=== PATIENT | female | born 1995 | race Caucasian/White ===

== ENCOUNTER 2017-12-17 08:01 | Outpatient (CLI) | payer BC ==
--- NOTE | 2017-12-17 18:18 | XRAY Report ---
THREE VIEW LUMBAR SPINE: 12/17/2017 HISTORY: Left hip pain. COMPARISON: None. FINDINGS: Slight mid lumbar dextroscoliosis with rotatory component. No anterolisthesis or retrolisthesis. Mild L4-5 and L5-S1 disk space narrowing. Remaining disk spaces well maintained. No significant facet joint arthropathy. Sacroiliac joints grossly unremarkable. IMPRESSION: EARLY DEGENERATIVE CHANGE L4-5 AND L5-S1 DISKS. OTHERWISE, NEGATIVE. TD: 12/17/2017 16:10
--- NOTE | 2017-12-17 18:20 | XRAY Report ---
PELVIS AND BILATERAL HIPS: 12/17/2017 HISTORY: Left hip pain. FINDINGS: AP view of the pelvis and lateral view of each hip. There is very slight lateral hip joint space narrowing, left greater than right. No evidence of fracture, avascular necrosis, bone destruction, malalignment, or other abnormality. Sacroiliac joints appear normal. IMPRESSION: MINOR LEFT GREATER THAN RIGHT LATERAL HIP JOINT NARROWING. OTHERWISE, NEGATIVE. IF SYMPTOMS PERSIST, MRI MAY BE USEFUL. TD: 12/17/2017 16:10
== END 2017-12-17 08:02 | disposition home or self-care (01) ==
LOC: DI 08:01
PROVIDERS: ATTEND Physician Assistant
DX: M25.552 Pain in left hip (principal)
CPT/HCPCS: 72100; 73521

== ENCOUNTER 2017-12-18 08:00 | Outpatient (CLI) | payer BC ==
[2017-12-18 13:06] LABS: ALBUMIN 3.9 g/dL (3.2-5.5); ALBUMIN/GLOBULIN RATIO 1.3 (1.0-2.2); BILIRUBIN,TOTAL 0.8 mg/dL (0.2-1.0); CREATININE 0.5 mg/dL (0.4-1.0)
[2017-12-18 13:17] LABS: BASOPHILS # (AUTO) 0.1 10^3/uL (0.0-0.1); BASOPHILS % (AUTO) 0.8 %; EOSINOPHILS # (AUTO) 0.2 10^3/uL (0.0-0.7); EOSINOPHILS % (AUTO) 3.1 %; HGB - HEMOGLOBIN 14.1 g/dL (12.0-16.0); LYMPHOCYTES # (AUTO) 2.6 10^3/uL (1.5-3.5); LYMPHOCYTES % (AUTO) 38.5 %; MEAN CORPUSCULAR HEMOGLOBIN 28.9 pg (27.0-31.0); MEAN CORPUSCULAR HGB CONC 33.3 g/dL (32.0-36.0); MEAN CORPUSCULAR VOLUME 86.6 fL (81.0-99.0); MEAN PLATELET VOLUME 10.7 fL (7.9-10.8); MONOCYTES # (AUTO) 0.5 10^3/uL (0.0-1.0); NEUTROPHILS # (AUTO) 3.3 10^3/uL (1.5-6.6); NEUTROPHILS % (AUTO) 49.6 %; PLT - PLATELET COUNT 232 10^3/uL (130-450); RED BLOOD COUNT 4.88 10^6/uL (4.20-5.40); RED CELL DISTRIBUTION WIDTH 13.8 % (12.0-15.0); WHITE BLOOD COUNT 6.7 x10^3/uL (4.8-10.8)
[2017-12-18 19:51] LABS: HB2 TOTAL 15.6 g/dL; HEMOGLOBIN A1C 0.53 g/dL; HEMOGLOBIN A1C % 5.3 % (4.6-6.2)
[2017-12-20 15:21] LABS: ANA SCREEN NEGATIVE (NEGATIVE)
== END 2017-12-18 08:01 | disposition home or self-care (01) ==
LOC: LAB.WCP 08:00
PROVIDERS: ATTEND Physician Assistant
DX: Z00.00 Encounter for general adult medical examination without abnormal findings (principal); L56.2 Photocontact dermatitis [berloque dermatitis]
CPT/HCPCS: 36415; 80053; 83036; 84443; 85025; 86038

== ENCOUNTER 2017-12-25 12:44 | Outpatient (CLI) | payer BC | END 2017-12-25 12:45 | disposition home or self-care (01) | LOC: DI 12:44 | PROVIDERS: ATTEND Physician Assistant | DX: Q79.6 Ehlers-Danlos syndromes (principal) | CPT/HCPCS: 93306 ==

== ENCOUNTER 2019-03-25 12:49 | Outpatient (CLI) | payer BC ==
--- NOTE | 2019-03-25 22:39 | Ultrasound Report ---
Reason: NAUSEA Procedure Date: 03/25/2019 Accession Number: [id number] / [id number] Procedure: US - Abdomen Complete CPT Code: FULL RESULT: EXAM: ABDOMEN ULTRASOUND EXAM DATE: 03/25/2019 01:40 PM. CLINICAL HISTORY: NAUSEA. COMPARISON: None. TECHNIQUE: Real-time scanning was performed with static images obtained. FINDINGS: Liver: Diffusely echogenic. 17.4 cm. Main portal vein flow: Hepatopetal. Gallbladder: A couple of gallstones measuring 6 mm and 9 mm. No abnormal wall thickening or sonographic Tidwell sign. Biliary System: Common bile duct measures 5 mm. No intrahepatic ductal dilatation. Pancreas: Head and body are unremarkable. Tail is obscured by overlying bowel gas. Kidneys: Right: 12.0 cm longitudinally. No contour-deforming mass, shadowing stones, or hydronephrosis. Left: 10.3 cm longitudinally. No contour-deforming mass, shadowing stones, or hydronephrosis. Spleen: 11.2 cm Imaged portions of the aorta and IVC are unremarkable. IMPRESSION: Diffuse hepatic steatosis. Cholelithiasis. RADIA
== END 2019-03-25 12:50 | disposition home or self-care (01) ==
LOC: DI 12:49
PROVIDERS: ATTEND Physician Assistant
DX: K76.0 Fatty (change of) liver, not elsewhere classified (principal); K80.20 Calculus of gallbladder without cholecystitis without obstruction
CPT/HCPCS: 76700

== ENCOUNTER 2020-01-16 10:49 | Outpatient (CLI) | payer OTHER | END 2020-01-16 10:50 | disposition home or self-care (01) | LOC: LAB 10:49 | PROVIDERS: ATTEND Surgery | DX: Z01.812 Encounter for preprocedural laboratory examination (principal); K80.20 Calculus of gallbladder without cholecystitis without obstruction; Z20.828 Contact with and (suspected) exposure to other viral communicable diseases | CPT/HCPCS: 81599 ==

== ENCOUNTER 2020-01-20 10:17 | Day surgery (SDC) | payer OTHER ==
[2020-01-20] MEDS ORDERED: ONDANSETRON 4 MG/2 ML VIAL IVP ONE (10:18)
[2020-01-20] MEDS ORDERED: NEOSTIGMINE 1 MG/1 ML 10 ML MDV IVP ONE (10:18)
[2020-01-20] MEDS ORDERED: PROPOFOL 200 MG/20 ML VIAL IVP ONE (10:18)
[2020-01-20] MEDS ORDERED: DEXAMETHASONE 4 MG/ML VIAL IVP ONE (10:18)
[2020-01-20] MEDS ORDERED: KETOROLAC 30 MG/ML VIAL IVP ONE (10:18)
[2020-01-20] MEDS ORDERED: GLYCOPYRROLATE 1 MG/5 ML VIAL IVP ONE (10:18)
[2020-01-20] MEDS ORDERED: fentaNYL 250 MCG/5 ML VIAL IVP ONE (10:18)
[2020-01-20] MEDS ORDERED: ROCURONIUM 50 MG/5 ML VIAL IVP ONE (10:18)
[2020-01-20] MEDS ORDERED: MIDAZOLAM 2 MG/2 ML VIAL IVP ONE (10:18)
[2020-01-20] MEDS ORDERED: ePHEDrine 50 MG/ML VIAL IVP ONE (10:18)
[2020-01-20] MEDS ORDERED: CEFAZOLIN SODIUM IN 0.9 % NACL 2 GM/100 ML BAG IV ONE (10:33)
[2020-01-20 10:38] LABS: HCG UR QUAL NEGATIVE
[2020-01-20] MEDS ORDERED: LACTATED RINGERS 1,000 ML IV ONE ×2 (10:47→15:56)
--- NOTE | 2020-01-20 12:54 | ANESTHESIA ---
Pre-Anesthesia VS, & Labs - Diagnosis chronic cholecystitis - Procedure laparoscopic cholecystectomy Vital Signs: Temp Pulse Resp BP Pulse Ox 36.2 C L 89 16 131/74 H 89 L 01/20/20 10:40 01/20/20 10:40 01/20/20 10:40 01/20/20 10:40 01/20/20 10:40 Height 5 ft 8 in Weight (kg) 131.2 kg - NPO >8 hours - Is Patient ?: No Home Medications and Allergies Home Medications: Ambulatory Orders Acetaminophen 1,000 mg PO Q6HR PRN 01/13/20 Cyclobenzaprine HCl 5 mg PO TID PRN 01/13/20 Ibuprofen [Motrin] 600 mg PO Q6H PRN 01/13/20 Levalbuterol [Xopenex] 1 - 2 puffs INH Q4-6H 01/13/20 Acetaminophen 1,000 mg PO Q6HR PRN 01/13/20 Cyclobenzaprine HCl 5 mg PO TID PRN 01/13/20 Ibuprofen [Motrin] 600 mg PO Q6H PRN 01/13/20 Levalbuterol [Xopenex] 1 - 2 puffs INH Q4-6H 01/13/20 Allergies/Adverse Reactions: Allergies Allergy/AdvReac Type Severity Reaction Status Date / Time almond Allergy tingling Verified 01/13/20 15:26 mouth coconut oil Allergy Hives Verified 01/13/20 15:26 dust Allergy sneezing, Uncoded 01/13/20 15:26 watery eyes sun Allergy Rash Uncoded 01/13/20 15:26 Anes History & Medical History - Anesthetic History Anesthesia Complications: reports: No previous complications Family history of Anesthesia Complications: Denies Family history of Malignant Hyperthermia: Denies - Medical History Cardiovascular: reports: None (her echo was done in 2018 which is normal and 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 PRN inhaler) Gastrointestinal: reports: None, Cholelithiasis Urinary: reports: None Neuro: reports: None Musculoskeletal: reports: Other (brady danlos syndrome. no significant functional limitation. does have slipped lumber discs x2 which limits mobility " alittle bit") Endocrine/Autoimmune: reports: None Blood Disorders: reports: None Skin: reports: Eczema Smoking Status: Never smoker Psychosocial: reports: Anxiety (social anxiety but has not been diagnosed and does not take anything for it.) - Surgical History Eyes Ears Nose Throat (EENT): Myringotomy (tubes) Exam General: Alert, Oriented x3, Cooperative, No acute distress Dental: WNL Mouth Openin Fingerbreadth Neck Mobility: Normal Mallampati classification: II Thyromental Distance: 4-6 cm Respiratory: Lungs clear, Normal breath sounds, No respiratory distress, No accessory muscle use Cardiovascular: Regular rate, Normal S1, Normal S2, No murmurs Abdomen: Normal bowel sounds, Soft, No tenderness, No hepatospenomegaly, No masses Extremities: No clubbing, No cyanosis, No edema, Normal pulses, No tendernes s/swelling Neurological: Normal gait, Normal speech, Strength at 5/5 X4 ext, Normal tone, Sensation intact, Cranial nerves 3-12 NL, Reflexes 2+ Mental/Cognitive Status: Alert/Oriented X3, Normal for patient Cognitive Status: Within normal limits Plan Anesthesia Type: General Consent for Procedure(s) Verified and Reviewed: Yes Code Status: Attempt Resuscitation ASA classification: 2-Mild systemic disease Is this case an emergency?: No
[2020-01-20] MEDS ORDERED: BUPIVACAINE 0.25% PF 30 ML VIAL ONE ×2 (13:00→15:13)
[2020-01-20] MEDS ORDERED: BUPIVACAINE 0.25% PF 10 ML VIAL SUBQ ONE (14:21)
[2020-01-20] MEDS ORDERED: HYDROmorphone 0.5 MG/0.5 ML SYRINGE IVP PRN (16:17)
[2020-01-20] MEDS ORDERED: ONDANSETRON 4 MG/2 ML VIAL IVP PRN (16:17)
[2020-01-20] MEDS ORDERED: HYDROcod/ACETAM 5/325 MG TABLET PO PRN (16:17)
[2020-01-20] MEDS ORDERED: ACETAMINOPHEN 1,000 MG/100 ML 100 ML IV ONE (16:30)
--- NOTE | 2020-01-20 17:26 | OPERATIVE REPORT ---
DATE OF SERVICE: 01/20/2020 Physician: Kenney Hurst MD DATE OF SURGERY: 01/20/2020 PREOPERATIVE DIAGNOSIS: Chronic cholecystitis. POSTOPERATIVE DIAGNOSIS: Chronic cholecystitis. PROCEDURE PERFORMED: Laparoscopic cholecystectomy. SURGEON: Kenney Hurst MD SECONDARY TEACHER: None. TYPE OF ANESTHESIA 1. General endotracheal 2. Local anesthesia with Marcaine. COMPLICATIONS: None. ESTIMATED BLOOD LOSS: None. DRAINS: None. SPECIMEN: Gallbladder. FINDINGS: Obstructed gallbladder with a 1.5 cm stone in the neck of the gallbladder. INDICATIONS FOR PROCEDURE: Patient is a 24-year-old with daily nausea and mild discomfort. Her symptoms are classic for chronic cholecystitis. Surgery was recommended. Risks discussed, alternatives discussed. All questions answered and consent obtained. DETAILS OF PROCEDURE: Patient was properly identified, brought to the operating room and placed in supine position. She voided prior to surgery. General endotracheal anesthesia was induced. Sequential compression devices were placed. She was prepped and draped in a sterile fashion and given preoperative antibiotics. Local anesthetic was given to incision areas. An incision was made approximately 6 cm cephalad and 4 cm right lateral of the umbilicus. Dissection proceeded down to the fascia. Fascia was lifted upwards and abdomen entered with the Veress needle. CO2 was insufflated to a pressure of 15. A 10 mm trocar was placed, followed by 30-degree scope. There was no evidence of injury from Veress needle or trocar placement. Under direct vision, two 5 mm trocars were placed in the right upper quadrant and a 10 mm trocar was placed in the epigastrium. Body of the gallbladder was retracted anterior. Lateral attachments were partially taken down, further mobilizing the gallbladder more anterior and away from the duodenum. She had a long distended gallbladder. She also had fairly aberrant arterial anatomy with an anterior cystic artery coming up high and branching right lateral and left lateral. Branches were clipped at the gallbladder and divided. Anterior cystic artery branch was further peeled off from the gallbladder and swept downwards. Infundibulum of the gallbladder was then identified. She had a large obstructing stone, which was milked upwards. Infundibulum was then retracted right lateral and caudad. A very large bare cystic plate area or window was created. Cystic duct was inspected from right lateral and left lateral. Cystic duct was clipped at the gallbladder, x3 slightly proximal and sharply divided. Gallbladder was mobilized off from the bed of the liver with hook cautery. She had a very long posterior cystic artery, which went nearly to the fundus of gallbladder. This was clipped x2, slightly proximal clipped at the gallbladder and sharply divided. Gallbladder was placed in an EndoCatch bag and brought out through the epigastrium without spillage of bile or stone material. Hemostasis was assured. Clips were secure. Fascia in the epigastrium was closed with an interrupted 0 Vicryl. Fascia at the periumbilical site closed with [id number] 0 Vicryl suture. A carbon dioxide was removed and trocars were removed under direct vision. Skin was closed with buried interrupted or running 4-0 Monocryl. Dressings were applied. She tolerated the procedure well. TD: 01/20/2020 16:36 MARISSA
[2020-01-20] MEDS ORDERED: HYDROcod/ACETAM 5/325 MG TABLET ONE (17:36)
[2020-01-20 17:52] VITALS: BP 107/56
== END 2020-01-20 10:18 | disposition home or self-care (01) ==
LOC: SDS 10:17
PROVIDERS: ATTEND Surgery
PROC: 0FT44ZZ Resection of Gallbladder, Percutaneous Endoscopic Approach (ICD-10-PCS; principal; 2020-01-20 13:00)
DX: K80.21 Calculus of gallbladder without cholecystitis with obstruction (principal); J45.909 Unspecified asthma, uncomplicated; Q79.60 Ehlers-Danlos syndrome, unspecified; E66.9 Obesity, unspecified; Z68.41 Body mass index [BMI] 40.0-44.9, adult
CPT/HCPCS: 47562; 81025; A9270; J0131; J0690; J1170; J3010; J7120

== ENCOUNTER 2023-01-29 09:38 | Outpatient (CLI) | payer OTHER ==
--- NOTE | 2023-01-30 07:59 | SLEEP CARE CONSULTATION ---
Information from patient questionnaire entered by Sis Umanzor. I have reviewed and concur with the information entered by Sis Umanzor. This document represents the service I personally performed and the decisions made by me, Mayra Garcia MD, [facility]. History of Present Illness Service Date and Time: 01/29/2023 0938 Reason for Visit: New patient Chief Complaint: reports: Insomnia, Snoring, Frequent awakenings at night Date of Onset: SNORING ALWAYS INSOMNIA AND AWAKENING 2-3YRS Usual bedtime: 8-10PM Time it takes to fall asleep: 30MIN TO 4HRS Snores at night: Yes Observed to quit breathing while asleep: No Number of times waking at night: 3-4 Reasons for waking at night: reports: Other (UNKNOWN) Toss, Turn, or Twitch while sleeping: Yes Recalls having dreams: Yes Usually gets out of bed at: 415-5AM Feels refreshed in the morning: No Morning headache: No Sleepy or fatigued during the day: Yes Ever fallen asleep while driving: No Takes day naps: Yes Dreams during day naps: Yes Prior sleep studies: No Additional HPI information: I have the pleasure of seeing Ms. Melo today regarding the possibility of her having obstructive sleep apnea. As you know, she is a 27-year-old lady who complains of insomnia, involving mainly the sleep onset. This has been going on for a few years. The patient tells me that she normally goes to bed around 8 - 10 pm, and it takes her approximately 0.5 4 hours to fall asleep. She does not take any sleep aid. She has been told that she snores loudly and irregularly at night. She has never been observed to stop breathing in her sleep. However, she sleeps alone. She can recall waking up on the average of 0 - 5 times during the night. Most of the time she wakes up because of unknown reason. She has never awakened because of her own snoring, choking, or having to gasp for air. There is a lot of tossing and turning in her sleep. She has somniloquy (sleep talking) but not somnambulism (sleep walking). Generally, she can recall having dreams. In the morning she usually gets up out of the bed around 4 - 5 a.m. (9 noon on weekends) not feeling refreshed nor rested. She has to wake up to drive her nephew to a daycare. Sometimes she goes back to sleep. She usually does not have a morning headache. During the day she complains of feeling sleepy and fatigued. Her score on [place] Sleepiness Scale is 12 out of 24. She has never fallen asleep while driving nor has had any accident due to sleepiness. She usually takes 2 3 hour naps during the day. Upon falling asleep during the day she reports having dreams. She has never had sleep paralysis, experienced cataplexy but complains of symptoms of restless leg syndrome. She reports having impaired concentration during the day. - Parasomnia Symptoms Ever been unable to move upon waking from sleep: No Walks in sleep: No Talks in sleep: Yes Ever acted out dreams in sleep: No Ever felt weak in the knees when startled or emotional: No Bothered by creepy, crawly, restless sensations in legs: Yes Problems with memory or concentration: Yes Subjective Initial [place] Sleepiness Scale score: 13 (01/29/23) Past Medical History Past Medical History: reports: Claustrophobia, Anxiety, Asthma, Depression, Attention deficit Social History The patient's occupation is a [employer]. Patient is Single and lives in [place]. Have you smoked in the past 12 months: No Alcohol use: No Caffeine use: Yes Caffeine amount and frequency: 8OZ EVERYDAY Family History Family history of sleep disordered breathing: Yes Family Hx Sleep Apnea: Father: Snoring, Sleep apnea - Treated, Sibling: Snoring, Sleep apnea - Untreated, Grandparent: Snoring Allergies and Home Medications Known drug allergies: No Drug allergies reviewed: Yes Home medication list reviewed: Yes Allergy and home medication list: Allergies almond Allergy (Verified 01/26/23 08:26) tingling mouth coconut oil Allergy (Verified 01/26/23 08:26) Hives Review of Systems Weight gain over past 5 years: 30 Cardiovascular: denies: high blood pressure, palpitations, chest pain, irregular heart rate or pulse, leg or foot swelling, have to sleep sitting up, other Respiratory: denies: shortness of breath, wheeze, sputum production, chronic cough, other Gastrointestinal: reports: heartburn, nausea Neurological: reports: headaches, gait or balance problems Psychiatric: reports: Attention Deficit Hyperactivity, anxiety, depression, claustrophobia Ear/Nose/Throat: reports: nasal congestion, wisdom teeth removed Endocrine: reports: sluggishness, too hot or cold Musculoskeletal: reports: back pain Immunologic: reports: sneezing, allergies to food or environment Physical Exam Vital signs obtained and entered by: SIS Lisa MA Blood Pressure: 126/72 (LEFT ARM) Cuff size: regular Heart Rate: 82 O2 Saturation: 99 Height: 5 ft 9 in Weight: 327 lb 9.6 oz Body Mass Index: 48.4 BMI Classification: Morbidly Obese Neck circumference: 17 Mood/affect: Normal HEENT: No craniofacial malformation Nostrils: patent to airflow Septum: midline Mouth and throat: narrow oropharynx Soft palate: long Uvula: normal Uvula visualization: 50% Mallampati Class II Tongue: normal in size Tonsils: small Chin and jaw: normal size and position Neck: normal w/o lymphadenopathy or thyromegaly Heart: regular rate and rhythm Lungs: clear bilaterally Extremities: no edema or clubbing Neurologic: intact Impression and Plan IMPRESSION: 1. Obstructive Sleep Apnea-Hypopnea Syndrome, as evident by history of snore, frequent awakenings, unrefreshed sleep, cognitive impairment, and excessive daytime sleepiness. Narrow oropharynx and obesity are common predisposing factors for obstructive sleep apnea-hypopnea syndrome. She also has a strong family history of obstructive sleep apnea-hypopnea. I recommend proceeding to polysomnography to confirm the diagnosis and to assess severity. If she has significant sleep disordered breathing, a manual CPAP titration study will also be performed to find the optimal treatment pressure. I informed the patient of what the sleep studies involve and after some discussion, she agreed to proceed. 2. Insomnia, due to irregular sleep-wake pattern. The patient wakes up anywhere from 4 am to noon. She also takes long naps during the day. Her insomnia will not correct until she first develops a regular sleep-wake schedule. I recommend getting up no later than 6 am every morning, especially on the weekends. She should avoid taking naps. However, if the current irregular sleep-wake pattern fits her lifestyle, she may continue with it and not worry too much about not falling asleep at the beginning of the night. Plan: 1. Schedule polysomnography and return in 1 to 2 weeks after the study to discuss result and initiate therapy. 2. Develop a regular sleep-wake schedule as mentioned above. 3. Avoid caffeine consumption after noon. 4. Attempt to lose weight. Counseling Topics: Weight control Follow up with Sleep Care in: 1-2 months Visit Type: In Office Location of Provider: Home Time Spent with Patient (minutes): 15 Provider Statement: I spent 100% of the Face to Face Visit with the patient with greater than 50% spent counseling the patient and coordination of care.
[2023-01-30 08:04] VITALS: BP 126/72
== END 2023-01-29 09:39 | disposition home or self-care (01) ==
LOC: SC 09:38
PROVIDERS: ATTEND Internal Medicine Pulmonary Disease
DX: G47.10 Hypersomnia, unspecified (principal); R53.83 Other fatigue; G47.00 Insomnia, unspecified; R06.83 Snoring; G47.8 Other sleep disorders; F32.A Depression, unspecified; E66.01 Morbid (severe) obesity due to excess calories; Z68.42 Body mass index [BMI] 45.0-49.9, adult
CPT/HCPCS: 99202; 99212

== ENCOUNTER 2023-02-08 12:13 | Outpatient (CLI) | payer OTHER | END 2023-02-08 12:14 | disposition home or self-care (01) | LOC: DI 12:13 | PROVIDERS: ATTEND Physician Assistant | DX: I77.819 Aortic ectasia, unspecified site (principal) | CPT/HCPCS: 93306 ==

== ENCOUNTER 2023-03-12 09:28 | Outpatient (CLI) | payer OTHER | END 2023-03-12 09:29 | disposition home or self-care (01) | LOC: SC 09:28 | PROVIDERS: ATTEND Internal Medicine Pulmonary Disease | DX: G47.33 Obstructive sleep apnea (adult) (pediatric) (principal); R09.02 Hypoxemia | CPT/HCPCS: 95806 ==